=== PATIENT | female | born 1965 | race Caucasian/White ===

== ENCOUNTER → 2018-07-08 | Day surgery (SDC) | payer OTHER | LOC: NM 07:37 | PROVIDERS: ATTEND Surgery | DX: K21.9 Gastro-esophageal reflux disease without esophagitis (principal); K44.9 Diaphragmatic hernia without obstruction or gangrene; J45.909 Unspecified asthma, uncomplicated; Z87.891 Personal history of nicotine dependence; Z79.899 Other long term (current) drug therapy | CPT/HCPCS: 91010 ==

== ENCOUNTER 2018-08-07 11:27 | Outpatient (CLI) | payer OTHER ==
[2018-08-07 12:09] LABS: #Basophils 0.1 thou/uL (0.0-0.2); #Eosinphils 0.3 thou/uL (0.0-0.7); #Lymphocytes 3.5 thou/uL (1.20-3.40); #Monocytes 0.8 thou/uL (0.11-0.59); #Neutrophils 4.8 thou/uL (1.40-6.50); %Basophils 0.9 % (0.0-1.0); %Eosinophils 2.7 % (0.0-10.0); %Monocytes 8.2 % (0.0-10.0); %Neutrophils 51.3 % (42.0-75.0); Hemoglobin 15.2 g/dL (12.0-16.0); Mean Corpuscular HGB CONC 34.5 g/dL (32.0-36.0); Mean Corpuscular Hemoglobin 30.2 pg (27.0-31.0); Mean Corpuscular Volume 87.4 fL (78.0-98.0); Mean Platelet Volume 7.7 fL (7.4-10.4); Platelet Count 288 thou/uL (130-400); RBC Distribution Width 12.2 % (11.5-14.5); Red Blood Cell (RBC) Count 5.06 mill/uL (4.20-5.40); White Blood Cell (WBC) Count 9.4 thou/uL (4.8-10.8)
[2018-08-07 12:20] LABS: ALT (SGPT) 24 U/L (8-55); AST (SGOT) 25 U/L (5-34); Albumin 4.6 g/dL (3.5-5.0); Alkaline Phosphatase 84 U/L (40-150); Anion Gap 14 mmol/L (10-20); BUN (Urea Nitrogen) 10 mg/dL (9.8-20.1); Bilirubin, Total 0.4 mg/dL (0.2-1.2); Calc. Creatinine Clearance 0 mL/min (70-130); Calcium 9.5 mg/dL (7.8-10.44); Carbon Dioxide 24 mmol/L (22-29); Chloride 106 mmol/L (98-107); Estimated GFR-MDRD 75; Globulin 3.5 g/dL (2.4-3.5); Glucose 100 mg/dL (70-105); Potassium 4.3 mmol/L (3.5-5.1); Protein, Total 8.1 g/dL (6.0-8.3); Sodium 140 mmol/L (136-145)
== END 2018-08-07 11:28 | disposition home or self-care (01) ==
LOC: LABBT 11:27
PROVIDERS: ATTEND Surgery
DX: Z01.818 Encounter for other preprocedural examination (principal); K44.9 Diaphragmatic hernia without obstruction or gangrene; K21.9 Gastro-esophageal reflux disease without esophagitis
CPT/HCPCS: 80053; 85025; 93005; 93010

== ENCOUNTER 2018-08-09 05:59 | Inpatient (IN) | payer OTHER ==
[2018-08-09] MEDS ORDERED: CEFAZOLIN 2 GM/50 ML BAG ONE (06:28)
[2018-08-09] MEDS ORDERED: Bupivacaine/Epinephrine 0.25% 30 ML VIAL ONE (06:36)
[2018-08-09] MEDS ORDERED: Fentanyl 100 MCG/2 ML VIAL ONE ×2 (06:50→09:49)
[2018-08-09] MEDS ORDERED: Midazolam HCl 2 mg/2 ml Vial ONE (06:52)
[2018-08-09] MEDS ORDERED: Morphine 4 MG/ML VIAL SLOW IVP PRN ×2 (09:35→13:39)
[2018-08-09] MEDS ORDERED: diphenhydrAMINE 50 MG/ML VIAL IVP PRN (09:35)
[2018-08-09] MEDS ORDERED: Morphine 2 MG/ML SYRINGE SLOW IVP PRN (09:35)
[2018-08-09] MEDS ORDERED: Dextrose 50% Abboject 50 ML SYRINGE SLOW IVP PRN (09:35)
[2018-08-09] MEDS ORDERED: Ondansetron PF 4 MG/2 ML Vial IVP PRN (09:35)
[2018-08-09] MEDS ORDERED: Promethazine HCl 25 MG/ML VIAL IM PRN (09:35)
[2018-08-09] MEDS ORDERED: hydrALAZINE 20 MG/ML VIAL SLOW IVP PRN (09:35)
[2018-08-09] MEDS ORDERED: Dextrose 5% in Water 1,000 ML IV PRN (09:35)
[2018-08-09] MEDS ORDERED: CEFAZOLIN/Water 2 GM/20 ML SYRINGE SLOW IVP SCH (09:45)
[2018-08-09] MEDS ORDERED: D5 1/2 NS w/20 mEq KCL 1,000 ML ONE (09:55)
[2018-08-09 10:42] VITALS: BMI 34.4
--- NOTE | 2018-08-09 11:11 | OP ---
DATE OF PROCEDURE: 08/09/2018 PREOPERATIVE DIAGNOSES: Hiatal hernia with gastroesophageal reflux. PROCEDURE PERFORMED: Laparoscopic hiatal hernia repair, Patrice fundoplication, and esophagogastroscopy. INDICATION FOR PROCEDURE: The patient is a 52-year-old female, who has longstanding severe gastroesophageal reflux that is no longer responding to Dexilant and Zantac, who has a small hiatal hernia. FINDINGS: About a 2 cm hiatal hernia with a lipoma creating more of a dilatation of the hiatal opening. The repair was done over a 40-Kazakh bougie. DESCRIPTION OF PROCEDURE: After informed consent was obtained, the patient was taken to the operating room and given general endotracheal anesthesia. She was placed in supine position. Abdomen was prepped and draped in usual fashion. Local anesthesia infiltrated subcutaneously and deep. A subumbilical incision was performed and a Veress needle inserted. Drop test performed. Pneumoperitoneum was created to a volume of 2 L of carbon dioxide. Utilizing a bladeless 5 mm trocar and 0-degree laparoscope, direct visual entry into the abdominal cavity was performed. Pneumoperitoneum was created to a pressure of 15 mmHg and the patient was placed in steep reverse Trendelenburg position. Mark liver retractor inserted. The left lobe of the liver retracted superiorly. A 5-mm port was placed just to the left of the falciform, 8 mm port placed left subcostal, and another 5 mm port placed left lateral. The gastrophrenic ligament was divided utilizing the LigaSure. The peritoneum opened along the crura with the LigaSure and using blunt and sharp dissection, the stomach was reduced from the chest and a posterior esophageal window was created bluntly. A half-inch [place] drain was then inserted to allow retraction and further dissection of the hiatus circumferentially. The posterior vagal nerve was preserved. The short gastrics were taken down utilizing the ligature. Then, a 40-[place] bougie was inserted, directed into the stomach. A posterior crural plication was performed utilizing a 0 Ethibond in the Ti-Knot device over the bougie. Then, the fundus was grasped and brought to the right side of the esophagus. The fundoplication was performed by suturing the left fundus to the esophagus to the right fundus to create the wrap. Three sutures of 2-0 silk suture used for this, tied intracorporeally. Then, the fundus was further tacked to the abdominal wall with a 2-0 silk suture to reduce any recurrence risk. Intraoperative endoscopy was performed. The video-endoscope inserted under direct vision, advanced into the stomach. The stomach insufflated with air under water. There was no air leak. The scope was retroflexed and there was no paraesophageal component seen or torsion. The stomach decompressed. Scope removed. The stomach was further pexied to the diaphragm utilizing Tisseel tissue sealant. This was applied circumferentially to aid in further adherence and reduction of recurrence risk. Then, the trocars and retractors removed. The abdomen was decompressed and the skin closed with interrupted 4-0 Rapide. Dermabond applied. The patient tolerated the procedure well, transferred to recovery in good condition. Sponge and needle count verified correct x2. Job ID: [id number]
[2018-08-09] MEDS: Acetaminophen 1,000 MG in Premix Bag 1 BAG IVPB SCH ×3 (12:06→23:03)
[2018-08-09] MEDS: Ketorolac Tromethamine 30 MG/ML VIAL IVP SCH ×3 (12:07→23:00)
[2018-08-09] MEDS: D5 1/2 NS w/20 mEq KCL 1,000 ML IV SCH ×2 (12:14→17:46)
[2018-08-09] MEDS: CEFAZOLIN 2 GM/50 ML-DEXTROSE 2 GM in Premix Bag 1 BAG IVPB SCH ×2 (15:03→22:55)
[2018-08-09] MEDS ORDERED: Zolpidem Tartrate 5 MG TAB PO SCH (21:00)
[2018-08-10] MEDS: D5 1/2 NS w/20 mEq KCL 1,000 ML IV SCH (02:11)
[2018-08-10] MEDS: Acetaminophen 1,000 MG in Premix Bag 1 BAG IVPB SCH (06:00)
[2018-08-10] MEDS: Ketorolac Tromethamine 30 MG/ML VIAL IVP SCH (06:00)
[2018-08-10 07:19] LABS: #Lymphocytes 3.8 thou/uL (1.20-3.40); #Monocytes 1.4 thou/uL (0.11-0.59); %Basophils 0.3 % (0.0-1.0); %Eosinophils 0.2 % (0.0-10.0); %Monocytes 8.9 % (0.0-10.0); %Neutrophils 65.7 % (42.0-75.0); Hemoglobin 14.7 g/dL (12.0-16.0); Mean Corpuscular HGB CONC 34.9 g/dL (32.0-36.0); Mean Corpuscular Hemoglobin 30.8 pg (27.0-31.0); Mean Corpuscular Volume 88.2 fL (78.0-98.0); Mean Platelet Volume 7.8 fL (7.4-10.4); Platelet Count 295 thou/uL (130-400); RBC Distribution Width 12.5 % (11.5-14.5); Red Blood Cell (RBC) Count 4.79 mill/uL (4.20-5.40); White Blood Cell (WBC) Count 15.3 thou/uL (4.8-10.8)
[2018-08-10 07:35] LABS: Anion Gap 15 mmol/L (10-20); BUN (Urea Nitrogen) 8 mg/dL (9.8-20.1); Calc. Creatinine Clearance 129 mL/min (70-130); Calcium 9.1 mg/dL (7.8-10.44); Carbon Dioxide 22 mmol/L (22-29); Chloride 105 mmol/L (98-107); Estimated GFR-MDRD 82; Glucose 101 mg/dL (70-105); Potassium 3.7 mmol/L (3.5-5.1); Sodium 138 mmol/L (136-145)
[2018-08-10] MEDS ORDERED: Pantoprazole 40 MG VIAL IVP SCH (09:00)
[2018-08-10] MEDS ORDERED: Enoxaparin Sodium 40 MG/0.4 ML SYRINGE SC SCH (09:00)
[2018-08-10] MEDS ORDERED: Hydrocodone-Acetamin 15 ML UDCUP PO PRN (10:00)
[2018-08-10 11:44] VITALS: BP 141/86; TEMP 97.5
--- NOTE | 2018-08-10 12:48 | RAD ---
ESOPHAGRAM: HISTORY: Hiatal hernia repair. FINDINGS: Single column contrast evaluation of the GE junction shows no evidence of obstruction or a leak. FLUORO TIME: 0.2 minutes. POS: ASHLYN
== END 2018-08-10 13:22 | disposition home or self-care (01) | DRG 328 ==
LOC: SDC 05:59 → SURG A 09:35 → OBSVTOIN 09:35
PROVIDERS: ADMIT Surgery; ATTEND Surgery
PROC: 0DV44ZZ Restriction of Esophagogastric Junction, Percutaneous Endoscopic Approach (ICD-10-PCS; principal; 2018-08-09)
PROC: 0BQT4ZZ Repair Diaphragm, Percutaneous Endoscopic Approach (ICD-10-PCS; 2018-08-09)
PROC: 0DJ08ZZ Inspection of Upper Intestinal Tract, Via Natural or Artificial Opening Endoscopic (ICD-10-PCS; 2018-08-09)
DX: K21.9 Gastro-esophageal reflux disease without esophagitis (principal); K44.9 Diaphragmatic hernia without obstruction or gangrene; M19.90 Unspecified osteoarthritis, unspecified site; J45.909 Unspecified asthma, uncomplicated; M79.7 Fibromyalgia; E03.9 Hypothyroidism, unspecified; Z88.5 Allergy status to narcotic agent
CPT/HCPCS: 36415; 74241; 80048; 80053; 85025; 93005; 93010; 94760; C9113; J0131; J1650; J1885; J2250; J2270; J3010